=== PATIENT | male | born 1995 | race Caucasian/White ===

== ENCOUNTER 2023-06-05 23:25 | Emergency (ER) | payer OTHER ==
[~2023-06-05] VITALS: Ht 177.8 cm; Wt 82.0 kg
[2023-06-05 23:28] VITALS: O2SAT 99
[2023-06-06 00:02] VITALS: BP 137/91; PULSE 127; RESP 16; TEMP 97.7
[2023-06-06] MEDS ORDERED: ACETAMINOPHEN 325MG TABLET PO ONE (00:15)
[2023-06-06] MEDS ORDERED: SODIUM CHLORIDE 0.9% 1,000 ML IV ONE (00:15)
[2023-06-06] MEDS ORDERED: BACITRACIN ZINC OINT UDPKT TOP ONE (00:15)
== END 2023-06-06 02:37 | disposition home or self-care (01) ==
LOC: ER 23:25
DX: R00.0 Tachycardia, unspecified (principal); F12.10 Cannabis abuse, uncomplicated
CPT/HCPCS: 20520; 99284; 71045; J7030; Z7610